=== PATIENT | female | born 1945 | race Caucasian/White ===

== ENCOUNTER 2017-04-08 18:40 | Emergency (ER) | payer MEDICARE ==
[~2017-04-08] VITALS: Ht 165.1 cm; Wt 86.2 kg
--- NOTE | 2017-04-08 18:45 | NUR ---
"WENT TO URGENT CARE FOR NOSEBLEED SINCE FRIDAY AND WHEN THEY CHECKED MY BP IT WAS 230/112"; DENIES CP/SOB/HEADACHE/N/V.
[2017-04-08] MEDS ORDERED: OXYMETAZOLINE HCL NASAL SPRAY 30 ML BOTTLE NS ONE ×2 (19:06→19:30)
[2017-04-08] MEDS ORDERED: AMLODIPINE BESYLATE 5 MG TABLET ONE (19:06)
--- NOTE | 2017-04-08 19:11 | NUR ---
EKG IN PROGRESS
--- NOTE | 2017-04-08 19:28 | NUR ---
GAVE REPORT TO JERAD FOR [facility]ILO
--- NOTE | 2017-04-08 19:29 | NUR ---
Assumed care of pt. pt ambulatory w/ steady gait to restroom w/ resp even & unlabored, no active nosebleed at this time w/ nad noted.
[2017-04-08] MEDS ORDERED: AMLODIPINE BESYLATE 5 MG TABLET PO ONE (19:30)
--- NOTE | 2017-04-08 19:52 | NUR ---
Dr. Triplett at bedside for update on pt status
--- NOTE | 2017-04-08 20:44 | NUR ---
PT OK TO DISCHARGE PER DR MCKENNA. Patient discharged to home in stable condition. Written and verbal after care instructions given. Patient verbalizes understanding of instruction.Patient is awake and alert to self, day, and place. PT ambulatory with a steady gait
[2017-04-08 20:45] VITALS: BP 163/107
== END 2017-04-08 20:45 | disposition home or self-care (01) ==
LOC: ER 18:41
DX: I10 Essential (primary) hypertension (principal); R04.0 Epistaxis
CPT/HCPCS: 93005; 99283; A4606; Z7610